=== PATIENT | male | born 1985 ===

== ENCOUNTER 2017-05-08 22:38 | Emergency (ER) | payer SELFPAY ==
[~2017-05-08] VITALS: Ht 170.2 cm; Wt 88.0 kg
[2017-05-08 22:44] VITALS: Ht 170.2 cm; Wt 88.0 kg
[2017-05-08] MEDS ORDERED: ONDANSETRON (ODT) 4 MG TAB ODT STA (23:13)
[2017-05-08] MEDS ORDERED: KETOROLAC 30 MG INJ IM STA (23:13)
[2017-05-08] MEDS ORDERED: HYDR-906 PO (23:16)
[2017-05-08] MEDS ORDERED: CYCL-319 PO (23:17)
[2017-05-08] MEDS ORDERED: NAPR-260 PO (23:17)
--- NOTE | 2017-05-08 23:25 | ERD ---
ER Documentation Chief Complaint Date/Time DATE: 05/08/17 TIME: 23:22 Chief Complaint LBP X 1 WEEK, DENIES TRAUMA OR PROBLEMS WITH BOWEL/BLADDER, HPI Patient is a 31-year-old male with no significant medical history presenting to the emergency department with left-sided low back pain radiating down his left leg which began approximately 6 days ago. Symptoms are constant. He has never had these symptoms in the past. He has tried [id number] medication for pain with little relief. He denies loss of bowel or bladder function, fevers, chills, or other symptoms currently. ROS All systems reviewed and are negative except as per history of present illness. Medications Home Meds Active Scripts Naproxen* (Naprosyn*) 500 Mg Tablet, 500 MG PO BID Y for PAIN AND/OR INFLAMMATION, #30 TAB Prov:TANK GARCIA PA-C 05/08/17 Cyclobenzaprine Hcl* (Cyclobenzaprine Hcl*) 10 Mg Tablet, 10 MG PO TID, #15 TAB Prov:TANK GARCIA PA-C 05/08/17 Hydrocodone/Acetaminophen ([place] 5-325 Tablet) 1 Each Tablet, 1 TAB PO Q6H Y for PAIN, #7 TAB Prov:TANK GARCIA PA-C 05/08/17 Allergies Allergies: Coded Allergies: No Known Allergy (Unverified , 05/08/17) Physical Exam Vitals Vital Signs Date Time Temp Pulse Resp B/P Pulse Ox O2 Delivery O2 Flow Rate FiO2 05/08/17 22:44 97.1 84 18 160/101 98 Physical Exam Const: Nontoxic, well-appearing male in mild distress secondary to pain. Head: Atraumatic Eyes: Normal Conjunctiva ENT: Normal External Ears, Nose and Mouth. Neck: Full range of motion..~ No meningismus. Resp: Clear to auscultation bilaterally Cardio: Regular rate and rhythm, no murmurs Abd: Soft, non tender, non distended. Normal bowel sounds Skin: No petechiae or rashes Back: There is tenderness palpation of the paraspinal muscles of the L-spine on the left side. Positive straight leg raise bilaterally. No midline tenderness to palpation. Ext: No cyanosis, or edema Neur: Awake and alert Psych: Normal Mood and Affect Results 24 hrs Current Medications Medications (Trade) Dose Ordered Sig/Jacquie Route PRN Reason Start Time Stop Time Status Last Admin Dose Admin Ketorolac Tromethamine (Toradol) 30 mg ONCE STAT IM 05/08/17 23:13 05/08/17 23:16 DC Dexamethasone (Decadron) 10 mg ONCE ONCE IM 05/08/17 23:30 05/08/17 23:31 Acetaminophen/ Hydrocodone Bitart ([place] (5/325)) 1 tab ONCE ONCE PO 05/08/17 23:30 05/08/17 23:31 Ondansetron HCl (Zofran Odt) 4 mg ONCE STAT ODT 05/08/17 23:13 05/08/17 23:16 DC Procedures/MDM 31-year-old male presenting to the emergency department with complaints of left- sided low back pain. History and physical examination is consistent with sciatica. He was treated in the department with IM Toradol, IM Decadron, [place] , p.o. Zofran. He is feeling improved prior to discharge. Low Suspicion for cauda equina, epidural abscess, or other emergent pathology. The patient was stable for discharge home with prescriptions for naproxen, Flexeril, and [place]. Pt to follow-up with the primary care physician within 1-2 days. The patient was instructed to return immediately for any new, worsening, or concerning symptoms. Departure Diagnosis: Primary Impression: Back pain with sciatica Condition: Fair Patient Instructions: Back Pain W/ Sciatica Additional Instructions: No mas mejor en 2-3 joe, regresar. Mas peor en 24 horas, regresear rapidamente. Ir a doctor primario in 5-7 joe. Usar instrucciones cuando lupillo medicamento. TANK GARCIA PA-C May 08, 2017 23:25
[2017-05-08] MEDS ORDERED: HYDROCODONE/APAP (5/325) TAB PO ONE (23:30)
[2017-05-08] MEDS ORDERED: DEXAMETHASONE 10 MG/ML 1 ML INJ IM ONE (23:30)
== END 2017-05-08 23:57 | disposition home or self-care (01) ==
LOC: FTE 22:38
DX: M54.42 Lumbago with sciatica, left side (principal)
CPT/HCPCS: 96372; 99284; J1100; J1885